=== PATIENT | female | born 1995 | race Caucasian/White ===

== ENCOUNTER 2021-08-03 08:05 | Outpatient (CLI) | payer BC, SELFPAY ==
--- NOTE | ~2021-08-03 | US_ITS ---
EXAMINATION: US OB <=14 wk fetus w TV EXAM DATE: 08/03/2021 09:04 INDICATION: , pelvic and perineal pain. 1st trimester. TECHNIQUE: Pelvic obstetrical transabdominal sonogram was performed by a technologist. There are mu ltiple grayscale and Doppler images available for interpretation. There are no earlier studies of th is gestation for comparison. FINDINGS: There is an intrauterine gestation sac with yolk sac identified. Mean sac diameter of 1.2 c m corresponds to estimated gestational age 6 weeks 0 days. No pole or cardiac activity is ident ified. Often a pole is identified with a mean sac diameter this size, but not always. Cannot co nfirm or exclude viability at this time. The ovaries are unremarkable. IMPRESSION: Intrauterine gestation sac age by ultrasound 6 weeks 0 days. Cannot confirm or exclude v iability at this time. Consider 1-2 week follow-up ultrasound. Reviewed, dictated and finalized at location B. IMPRESSION: Intrauterine gestation sac age by ultrasound 6 weeks 0 days. Canno t confirm or exclude viability at this time. Consider 1-2 week follow-up ultras ound.
== END 2021-08-03 08:06 | disposition home or self-care (01) ==
PROVIDERS: PCP Nurse Practitioner Family; Referring Provider Obstetrics & Gynecology; Visit Provider Nurse Practitioner Family
DX: R10.2 Pelvic and perineal pain (principal); O26.841 Uterine size-date discrepancy, first trimester; Z3A.01 Less than 8 weeks gestation of pregnancy
CPT/HCPCS: 36415; 76801; 76817; 84702; 86900; 86901

== ENCOUNTER 2021-08-05 09:24 | Outpatient (CLI) | payer BC, SELFPAY | END 2021-08-05 09:25 | disposition home or self-care (01) | LOC: ANHLAB 09:25 | PROVIDERS: PCP Nurse Practitioner Family; Visit Provider Obstetrics & Gynecology | DX: O26.849 Uterine size-date discrepancy, unspecified trimester (principal); Z3A.00 Weeks of gestation of pregnancy not specified | CPT/HCPCS: 36415; 84702; 86900; 86901 ==

== ENCOUNTER 2022-03-22 14:09 | Inpatient (IN) | payer BC, SELFPAY ==
[2022-03-22] VITALS (10 sets, daily range): BP systolic 120–149; BP diastolic 65–91; PULSE 86–100; BMI 33.0
[2022-03-22 14:43] LABS: Basophils Percent Auto 0.4 % (0.2-1.2); Eosinophils Percent Auto 0.2 % (0-4.4); Hematocrit 33.6 % (37.0-47.0); Hemoglobin 10.9 g/dL (12.0-15.0); Immature Granulocyte Percent A 1.2 % (0-0.5); Lymphocytes Absolute Auto 1.62 K/mm3 (0.9-3.2); Lymphocytes Percent Auto 18.9 % (18.3-44.2); Mean Corpuscular HGB Conc 32.4 g/dl (32-36); Mean Corpuscular Hemoglobin 26.7 pg (26-34); Mean Corpuscular Volume 82.2 fl (80-100); Mean Platelet Volume 9.9 fl (7.4-10.4); Monocytes Absolute Auto 0.6 K/mm3 (0.1-0.6); Monocytes Percent Auto 7.4 % (2.6-8.5); Neutrophils Absolute Auto 6.2 K/mm3 (1.3-6.7); Neutrophils Percent Auto 71.9 % (45.5-73.1); Platelet Count Result 202 k/mm3 (150-375); Red Blood Count 4.09 M/mm3 (4.2-5.4); Red Cell Distribution Width 12.2 % (11.5-14.5); White Blood Count 8.6 K/mm3 (4.5-10.0)
[2022-03-22 14:46] LABS: Appearance Urine Clear (Clear); Bilirubin Urine Negative (Negative); Blood Urine Trace-lysed (Negative); Color Urine Yellow (Yellow); Glucose Urine UA Negative (Negative); Ketones Urine Negative (Negative); Leukocyte Esterase Ur Negative LEU/UL (NEGATIVE); Nitrate Urine Negative (Negative); Protein Urine Negative (Negative); Urobilinogen Urine 0.2 mg/dL (<2.0)
[2022-03-22 14:52] LABS: Alanine Aminotransferase 30 U/L (6-35); Albumin Level 3.8 g/dL (3.5-5.1); Alkaline Phosphatase 138 U/L (38-126); Anion Gap 6 mmol/L (8-16); Aspartate Amino Transferase 33 U/L (14-36); Bilirubin,Total 0.4 mg/dL (0.2-1.3); Blood Urea Nitrogen 13 mg/dL (7-17); Calcium 8.9 mg/dL (8.4-10.2); Carbon Dioxide 19 mmol/L (22-30); Chloride 106 mmol/L (98-107); Estimated Glomerular Filt Rate > 60; Glucose 109 mg/dL (65-110); Sodium 131 mmol/L (137-145); Uric Acid 4.7 mg/dL (2.5-7.5)
[2022-03-22 14:55] LABS: Creatinine Urine 44.9 mg/dL; Total Protein Urine Random 19 mg/dL; Ur Ttl Prot Creatinine Ratio 0.42 mg/mg (0-0.20)
[2022-03-22 15:05] LABS: Mucus Urine Rare /lpf; RBC Urine 0-2 /hpf (0-2); Squamous Epithelial Cell Urine Moderate /hpf (Few); WBC Urine 0-3 /hpf (0-3)
[2022-03-22 15:08] LABS: Add Urine Microscopic? YES
--- OUTSIDE RECORDS SUMMARY | 2022-03-22 15:11 | XMS_ITS | Encounter Summary ---
:1995 Author Care Team Providers Name Role Phone Crystal Alfredo [facility] Primary Care Provider [phone] Reason for Visit None recorded. Assessment and Plan 1. Reduced movement ? non-stress test Discussion Note: None recorded.Patient educational handouts: No information available. Plan of Care Reminders Provider Appointments Ob Routine 03/23/2022 2:45PM Cindy Rosen MD ? Ob Routine 03/28/2022 9:00AM Cindy Rosen MD Lab None recorded. ? ? Referral None recorded. ? ? Procedures None recorded. ? ? Surgeries None recorded. ? ? Imaging Non-stress Test 02/17/2022 [place] Medications Name Start Date ? ? Vitamin ? sertraline 25 mg tablet ? TAKE 1 TABLET BY MOUTH EVERY DAY Tylenol ? Medications Administered None recorded. Vitals Blood Pressure 137/79 mm[Hg] Results Lab Results None recorded. Allergies Code Code System Name Reaction Severity Onset 723 RxNorm Amoxicillin ? ? ? Problems Name Status Onset Date Source ? Active 09/21/2021 ? Anxiety in Active ? ? Procedures Date Name Performed by ? 02/17/2022 Non-stress Test [place] [address] [place] [address] ([address]) Vaccine List None recorded. Social History Tobacco Smoking Status Unknown If Ever Smoked What type
--- OUTSIDE RECORDS SUMMARY | 2022-03-22 15:11 | XMS_ITS | Encounter Summary ---
:1995 Author Care Team Providers Name Role Phone Crystal Alfredo [facility] Primary Care Provider [phone] Reason for Visit OB visit Assessment and Plan 1. Routine care Discussion Note: None recorded.Patient educational handouts: No information available. Plan of Care Reminders Provider Appointments Ob Routine 03/23/2022 2:45PM Cindy Rosen MD ? Ob Routine 03/28/2022 9:00AM Cindy Rosen MD Lab None recorded. ? ? Referral None recorded. ? ? Procedures None recorded. ? ? Surgeries None recorded. ? ? Imaging None recorded. ? ? Medications Name Start Date ? ? Vitamin ? sertraline 25 mg tablet ? TAKE 1 TABLET BY MOUTH EVERY DAY Tylenol ? Medications Administered None recorded. Vitals Height Weight BMI Blood Pressure 5 ft 5 in 194 lbs 32.3 kg/m2 131/79 mm[Hg] Results Lab Results None recorded. Allergies Code Code System Name Reaction Severity Onset 723 RxNorm Amoxicillin ? ? ? Problems Name Status Onset Date Source ? Active 09/21/2021 ? Anxiety in Active ? ? Procedures Date Name Performed by ? 02/17/2022 Non-stress Test [place] [address] [place] [address] (Work Place) Vaccine List None recorded. Social History Tobacco Smoking Status Unknown If Ever Smoked What type of diet are you following? REGULA
--- OUTSIDE RECORDS SUMMARY | 2022-03-22 15:11 | XMS_ITS | Encounter Summary ---
:1995 Author Care Team Providers Name Role Phone Crystal Alfredo [facility] Primary Care Provider [phone] Reason for Visit OB visit Assessment and Plan 1. Routine care 2. Anxiety in ? sertraline 25 mg tablet Discussion Note: None recorded.Patient educational handouts: No [...] BMI Blood Pressure 5 ft 5 in 183 lbs 30.5 kg/m2 133/83 mm[Hg] Results Lab Results None recorded. Allergies Code Code System Name Reaction Severity Onset 723 RxNorm Amoxicillin ? ? ? Problems Name Status Onset Date Source ? Active 09/21/2021 ? Anxiety in Active ? ? Procedures None recorded. Vaccine List None recorded. Social History Tobacco Smoking Status Unknown If Ever Smoked What type of diet are you following? REGULAR What is the highest grade or level of school you [id number] have completed or the highest degree you have received?
--- OUTSIDE RECORDS SUMMARY | 2022-03-22 15:11 | XMS_ITS | Encounter Summary ---
:1995 Author Care Team Providers Name Role Phone Crystal Alfredo [facility] Primary Care Provider [phone] Reason for Visit OB visit Assessment and [...] BMI Blood Pressure 5 ft 5 in 189 lbs 31.5 kg/m2 132/79 mm[Hg] Results Lab Results None recorded. Allergies Code Code System Name Reaction Severity Onset 723 RxNorm Amoxicillin ? ? ? Problems Name Status Onset Date Source ? Active 09/21/2021 ? Anxiety in Active ? ? Procedures Date Name Performed by ? 02/17/2022 Non-stress Test [place] [address] [place] [address] (Work Place) Vaccine List None recorded. Social History Tobacco Smoking Status Unknown If Ever Smoked What type of diet are you following? REGULA
--- OUTSIDE RECORDS SUMMARY | 2022-03-22 15:11 | XMS_ITS ---
:1995 Author Care Team Providers Name Role Phone JAG RENNER [facility] Primary Care Provider [phone] Allergies Code Code System Name Reaction Severity Status Onset 723 RxNorm Amoxicillin Hives ? Active ? Medications Name Status Start Date Stop Date ? ? drospirenone 3 mg-ethinyl estradiol 0.02 mg tablet Completed ? 06/23/2021 TAKE 1 TABLET BY MOUTH DAILY hydroxyzine HCl 25 mg tablet Active ? Not available TAKE 1 TABLET BY MOUTH THREE TIMES DAILY NEEDED sertraline 25 mg tablet Active ? Not avai lable TAKE 1 TABLET BY MOUTH EVERY DAY Problems Name Status Onset Date Source ? Anxiety Active 08/02/2021 ? Procedures Date Name Performed by ? 08/02/2021 US, Pelvis, Transabdominal + Transvagina [facility] [address] [place] [address] (Work [address]) Results Lab Results Date Name Specimen Result Interpretation Description Value Range Status Address ? 08/04/2021 Urinalysis, ? Color Yellow ? ? [facility] [place]: Dipstick [address], [place] ? ? ? Appearance Clear ? ? [facility] [place]: [address], [place] ? ? ? Glucose Negative ? ? [facility] [place]: (Reference 619 Range: Negative [facility]
--- OUTSIDE RECORDS SUMMARY | 2022-03-22 15:11 | XMS_ITS | Encounter Summary ---
:1995 Author Care Team Providers Name Role Phone Crystal Alfredo [facility] Primary Care Provider [phone] Reason for Visit OB visit Assessment and [...] BMI Blood Pressure 5 ft 5 in 179 lbs 29.8 kg/m2 130/73 mm[Hg] Results Lab Results None recorded. Allergies [...] highest grade or level of school you [id number] have completed or the highest degree you have received? Are you able to walk? YESWOREST Are you blind or do you have difficulty seeing? N
--- OUTSIDE RECORDS SUMMARY | 2022-03-22 15:11 | XMS_ITS | Encounter Summary ---
:1995 Author Care Team Providers Name Role Phone Crystal Alfredo [facility] Primary Care Provider [phone] Reason for Visit OB visit Assessment and [...] BMI Blood Pressure 5 ft 5 in 196 lbs 32.6 kg/m2 132/79 mm[Hg] Results Lab Results None recorded. Allergies Code Code System Name Reaction Severity Onset 723 RxNorm Amoxicillin ? ? ? Problems Name Status Onset Date Source ? Active 09/21/2021 ? Anxiety in Active ? ? Procedures Date Name Performed by ? 02/17/2022 Non-stress Test [place] [address] [place] [address] (Work Place) Vaccine List None recorded. Social History Tobacco Smoking Status Unknown If Ever Smoked What type of diet are you following? REGULA
--- OUTSIDE RECORDS SUMMARY | 2022-03-22 15:11 | XMS_ITS ---
:1995 Author Care Team Providers Name Role Phone JAG RENNER [facility] Primary Care Provider [phone] Allergies Code Code System Name Reaction Severity Status Onset 723 RxNorm Amoxicillin ? ? Active ? Medications Name Status Start Date Stop Date ? ? drospirenone 3 mg-ethinyl estradiol 0.02 mg tablet Completed ? 08/13/2021 TAKE 1 TABLET BY MOUTH DAILY hydroxyzine HCl 25 mg tablet Completed ? TAKE 1 TABLET BY MOUTH THREE TIMES DAILY NEEDED Vitamin Active ? Not available sertraline 25 mg tablet Active ? Not avai lable TAKE 1 TABLET BY MOUTH EVERY DAY Tylenol Active ? Not available Problems Name Status Onset Date Source ? Active 09/21/2021 ? Anxiety in Active ? ? Procedures Date Name Performed by ? 08/13/2021 US, Obstetric, 1St Trimester [place] [address] [place] [address] (Work Place) 11/02/2021 , Obstetric, 2Nd or 3Rd Trimester [facility] [address] [place] [address] (Work Place) 11/02/2021 , Obstetric, Transvaginal [place] [address] [place] [address] (Work Place) 12/06/2021 , Obstetric, Follow-up [place] [address] [place] [address]
--- OUTSIDE RECORDS SUMMARY | 2022-03-22 15:11 | XMS_ITS | Encounter Summary ---
:1995 Author Care Team Providers Name Role Phone Crystal Alfredo [facility] Primary Care Provider [phone] Reason for Visit OB visit Assessment and [...] BMI Blood Pressure 5 ft 5 in 198 lbs 32.9 kg/m2 122/74 mm[Hg] Results Lab Results None recorded. Allergies Code Code System Name Reaction Severity Onset 723 RxNorm Amoxicillin ? ? ? Problems Name Status Onset Date Source ? Active 09/21/2021 ? Anxiety in Active ? ? Procedures Date Name Performed by ? 02/17/2022 Non-stress Test [place] [address] [place] [address] (Work [address]) Vaccine List None recorded. Social History Tobacco Smoking Status Unknown If Ever Smoked What type of diet are you following? REGULA
--- OUTSIDE RECORDS SUMMARY | 2022-03-22 15:11 | XMS_ITS | Encounter Summary ---
:1995 Author Care Team Providers Name Role Phone Crystal Alfredo [facility] Primary Care Provider [phone] Reason for Visit OB visit Assessment and [...] BMI Blood Pressure 5 ft 5 in 186 lbs 31 kg/m2 132/81 mm[Hg] Results Lab Results None recorded. Allergies [...] highest grade or level of school you [id number] have completed or the highest degree you have received? Are you able to walk? YESWOREST Are you blind or do you have difficulty seeing? N
--- NOTE | 2022-03-22 15:24 | LDADM ---
This patient, Raine Hsieh, was admitted to Labor/Delivery/Recovery 108 on 03/22/22 at 14:09. Plans for labor, pain management and were discussed with patient. Patient/family oriented to hospital policies and general routines including ID bracelet, bed and alarms, visiting hours, pain management, procedures, bathroom and other care routines, personal items, smoking policy, room service/diet and guest tray routines, infant security routines, and visiting hours. Patient/Family are encouraged to report perceived risks to care and to ask questions if they do not understand what they are told or what they should do. See OBIX for further documentation.
[2022-03-22] MEDS: miSOPROStol 25 MCG TABLET VAGINAL ×2 (15:55→20:18)
--- NOTE | 2022-03-22 16:37 | WPDANESEPP ---
Anes - Eval Pre Procedure Procedure: labor epidural Date/Time: 03/22/22 16:37 Surgeon: laura Preop Diagnosis: pain during labor Pre Op Diagnosis: PIH Labs Patient Data Age: 26 Gender: F Height: 1.65 m Weight: 90 kg Last Vital Signs Pulse 90 03/22/22 16:30 BP 133/86 03/22/22 16:30 O2 Del Method Room Air 03/22/22 15:23 Allergies Allergy/AdvReac Type Severity Reaction Status Date / Time amoxicillin Allergy Hives Verified 03/01/22 12:44 Home Medications Medication Instructions Recorded Confirmed Type prenat.vits,bart,[id number] 1 tablet PO DAILY 03/01/22 03/22/22 History sertraline 25 mg tablet 25 mg PO DAILY 03/01/22 03/22/22 History Laboratory Tests 03/22/22 03/22/22 03/22/22 14:23 14:23 14:23 WBC 8.6 K/mm3 K/mm3 (4.5-10.0) RBC 4.09 M/mm3 L M/mm3 (4.2-5.4) Hgb 10.9 g/dL L g/dL (12.0-15.0) Hct 33.6 % L % (37.0-47.0) MCV 82.2 fl fl (80-100) MCH 26.7 pg pg (26-34) MCHC 32.4 g/dl g/dl (32-36) RDW 12.2 % % (11.5-14.5) Plt Count 202 k/mm3 k/mm3 (150-375) MPV 9.9 fl fl (7.4-10.4) Immature Gran % (Auto) 1.2 % H % (0-0.5) Neut % (Auto) 71.9 % % (45.5-73.1) Lymph % (Auto) 18.9 % % (18.3-44.2) [place] % (Auto) 7.4 % % (2.6-8.5) Eos % (Auto) 0.2 % % (0-4.4) Baso % (Auto) 0.4 % % (0.2-1.2) Lymph # (Auto) 1.62 K/mm3 K/mm3 (0.9-3.2) [place] # (Auto) 0.6 K/mm3 K/mm3 (0.1-0.6) Eos # (Auto) 0.0 K/mm3 K/mm3 (0-0.3) Baso # (Auto) 0.0 K/mm3 K/mm3 (0.0-0.1) Abs Immat Gran (auto) 0.10 K/mm3 H K/mm3 (0.00-0.031) Absolute Neuts (auto) 6.2 K/mm3 K/mm3 (1.3-6.7) Absolute Nucleated RBC 0.0 K/mm3 K/mm3 (0.0-0.012) Nucleated RBC % 0.0 % % (0.0-0.2) Sodium Potassium Chloride Carbon Dioxide Anion Gap BUN Creatinine Estim Creat Clear Calc Estimated GFR Glucose Uric Acid Calcium Total Bilirubin AST ALT Alkaline Phosphatase Total Protein Albumin Urine Color Yellow (Yellow) Urine Appearance Clear (Clear) Urine pH 7.0 (5.0-9.0) Ur Specific Ira 1.010 (1.001-1.035) Urine Protein Negative mg/dL mg/dL (Negative) Urine Glucose (UA) Negative mg/dL mg/dL (Negative) Urine Ketones Negative mg/dL mg/dL (Negative) Ur Blood (Man) Trace-lysed (Negative) Urine Nitrate Negative (Negative) Urine Bilirubin Negative (Negative) Urine Urobilinogen 0.2 mg/dL mg/dL (<2.0) Ur Leukocyte Esterase Negative AUTUMN/UL AUTUMN/UL (NEGATIVE) Urine RBC 0-2 /hpf /hpf (0-2) Urine WBC 0-3 /hpf /hpf (0-3) Ur Squamous Epith Cells Moderate /hpf H /hpf (Few) Urine Mucus Rare /lpf /lpf U Random Total Protein 19 mg/dL mg/dL Urine Creatinine 44.9 mg/dL mg/dL Protein/Creat Ratio 2 0.42 mg/mg H mg/mg (0-0.20) RPR Blood Type Antibody Screen 03/22/22 03/22/22 03/22/22 14:23 15:19 15:19 WBC RBC Hgb Hct MCV MCH MCHC RDW Plt Count MPV Immature Gran % (Auto) Neut % (Auto) Lymph % (Auto) [place] % (Auto) Eos % (Auto) Baso % (Auto) Lymph # (Auto) [place] # (Auto) Eos # (Auto) Baso # (Auto) Abs Immat Gran (auto) Absolute Neuts (auto) Absolute
[2022-03-23] VITALS (158 sets, daily range): BP systolic 89–164; BP diastolic 31–137; PULSE 55–297; RESP 16–18; TEMP 36.2–37.1; O2SAT 80–100
[2022-03-23] MEDS: LACTATED RINGERS 1,000 ML 125 ML IV CONT ×2 (00:33→05:30)
[2022-03-23] MEDS: OXYTOCIN 30 UNITS/NS 500 ML 30 UNITS/500 ML BAG IV CONT (00:34)
--- NOTE | 2022-03-23 07:08 | PM.IMHP ---
H&P: HPI History of Present Illness Date/Time: 03/23/22 07:08 Chief Complaint: induction of labor Narrative: Raine is a 26yo G1 at 39.2 here for induction for PreE. BPs above her baseline up to 140s/90s, PEREIRA yesterday, now resolved, and PC ratio 0.46. Had cytotec x2 last night, now on pitocin. uncomplicated up until this point. Review of Systems Review of Systems: All systems reviewed & are unremarkable except as noted in HPI and below PMFSH Past Medical History Medical History (Updated 03/23/22 @ 07:12 by Cindy Rosen MD) IUP (intrauterine ), incidental Family History Family History (Updated 03/01/22 @ 12:46 by Lula Paz RN) Grandparent Heart disease Father Hypertension Grandparent Diabetes type 2, controlled Social History Social History Smoking status: Never smoker Substance use: never Lack of Transportation: No Lack of Food: Never True Current Housing: I Have Housing Concerned About Future Housing: No Difficulty Paying Gas/Electric Bills: No Difficulty Paying for Meds: No Currently Unemployed: No Education: Bachelor's Degree Difficulty w/ Childcare or Family Care: No Spiritual care concerns: No Meds Home Medications and Allergies Home Medications Medication Instructions Recorded Confirmed Type prenat.vits,bart,ayp-[id number]-xdxdn 1 tablet PO DAILY 03/01/22 03/22/22 History sertraline 25 mg tablet 25 mg PO DAILY 03/01/22 03/22/22 History Allergies Allergy/AdvReac Type Severity Reaction Status Date / Time amoxicillin Allergy Hives Verified 03/01/22 12:44 Vital Signs Vital Signs - 24 hr 03/22/22 14:30 03/22/22 14:45 03/22/22 15:00 Temperature Pulse Rate 100 97 94 Blood Pressure 143/87 H 136/77 132/84 Pulse Oximetry Oxygen Delivery 03/22/22 15:30 03/22/22 15:45 03/22/22 16:30 Temperature Pulse Rate 100 93 90 Blood Pressure 149/83 H 147/78 H 133/86 Pulse Oximetry Oxygen Delivery 03/22/22 17:00 03/22/22 17:30 03/22/22 18:00 Temperature Pulse Rate 92 86 99 Blood Pressure 120/68 138/65 138/91 H Pulse Oximetry Oxygen Delivery 03/22/22 21:37 03/23/22 00:38 03/23/22 00:30 Temperature 97.3 F L Pulse Rate 89 91 Blood Pressure 141/79 H 143/84 H Pulse Oximetry Oxygen Delivery 03/23/22 00:45 03/23/22 01:00 03/23/22 01:15 Temperature Pulse Rate 92 81 84 Blood Pressure 137/84 130/71 140/74 Pulse Oximetry Oxygen Delivery 03/23/22 01:30 03/23/22 02:35 03/23/22 02:45 Temperature Pulse Rate 92 89 83 Blood Pressure 128/65 145/85 H 134/85 Pulse Oximetry Oxygen Delivery 03/22/22 15:23 03/23/22 03:00 03/23/22 03:16 Temperature Pulse Rate 86 128 H Blood Pressure 144/99 H 138/71 Pulse Oximetry Oxygen Delivery Room Air 03/23/22 03:30 03/23/22 03:45 03/23/22 04:02 Temperature Pulse Rate 81 91 83 Blood Pressure 151/91 H 144/81 H 113/58 L Pulse Oximetry Oxygen Delivery 03/23/22 04:15 03/23/22 04:31 03/23/22 04:33 Temperature Pulse Rate 84 120 H Blood Pressure 118/82 118/93 H Pulse Oximetry 100 Oxygen Delivery 03/23/22 04:38 03/23/22 04:39 03/23/22 04:41 Temperature Pulse Rate 99 97 Blood Pressure 160/80 H 139/49 L Pulse Oximetry 100 Oxygen Delivery 03/23/22 04:43 03/23/22 04:44 03/23/22 04:47 Temperature Pulse Rate 90 77 69 Blood Pressure 122/67 118/99 H 112/59 L Pulse Oximetry 100 Oxygen Delivery 03/23/22 04:48 03/23/22 04:51 03/23/22 04:53 Temperature Pulse Rate 72 72 77 Blood Pressure 103/82 116/51 L 115/67 Pulse Oximetry 99 100 Oxygen Delivery 03/23/22 04:54 03/23/22 04:56 03/23/22 04:58 Temperature Pulse Rate 86 137 H 282 H Blood Pressure 106/59 L 89/59 L 111/54 L Pulse Oximetry 100 Oxygen Delivery 03/23/22 05:01 03/23/22 05:02 11/30/22 05:05 Temperature Pulse Rate 187 H 297 H 76 Blood Pressure 130/42 L 140/110 H 118/52 L Pulse
--- NOTE | 2022-03-23 12:53 | PM.OBPRVD ---
OB - Delivery Note Procedure Delivery date: 03/23/22 Procedure: Events: Preeclampsia w/o severe features Induction method: Per Misoprostol Protocol and Per Pitocin Protocol Delivery monitor: External FHT and Internal Uterine Route of delivery: Laceration Description: Perineal - 2nd Degree Delivery repair: vicryl Quantitative Blood Loss (ml): 400 Anesthesia type: Epidural Disposition: Floor Narrative: With adequate expulsive efforts by the mother, the baby's head was delivered OA. The baby's anterior shoulder was delivered under the pubic symphysis without difficulty. The posterior shoulder and the rest of the baby delivered without difficulty. The infant was placed on the mothers chest and suctioned and stimulated. The cord was clamped and cut after 30 seconds. Mother and baby both stable. [place] Baby Date of : 03/23/22 Time of : 12:26 Weeks of gestation at delivery: 39 Infant gender: Male Weight (pounds): 7 Weight (ounces): 9 presentation: vertex Placenta delivery description: Spontaneous Cord Vessel Description: 3 Vessels, Nuchal Cord and Delayed Cord Clamping score one minute: 9 score five minutes: 9
[2022-03-23] MEDS: WITCH HAZEL 40 PADS 1 PAD TOPICAL (14:30)
[2022-03-23] MEDS: ACETAMINOPHEN 325 MG TABLET 650 MG PO ×2 (14:30→20:36)
[2022-03-23] MEDS: BENZOCAINE 20% AER SPR (*SP) 56 GM CAN 1 SPRAY TOPICAL (14:30)
--- NOTE | 2022-03-23 15:24 | OBPPTRN ---
Patient transferred to post room # 290 via wheelchair. Support person present. Oriented to unit, room, information board, rooming in, admission packet and security measures. Patient verbalizes understanding. PT introductions made and plan of care discussed per post , pain management, bottle feeding, daily care activities. PT received such instructions this shift per one to one discussion, mom baby care guide and demonstrations. PT and spouse both recipients of such instructions and no barriers to learning identified at this time.
[2022-03-23] MEDS: DOCUSATE SODIUM 100 MG CAPSULE PO (16:27)
[2022-03-23] MEDS: IBUPROFEN 600 MG TABLET PO ×2 (16:27→23:20)
[2022-03-23 16:38] LABS: Rapid Plasma Reagin Non-Reactive (NonReactive)
[2022-03-24 04:00] VITALS: BP 124/83; PULSE 73; RESP 16; TEMP 36.6; O2SAT 99
[2022-03-24 04:47] LABS: Hematocrit 30.3 % (37.0-47.0); Hemoglobin 9.4 g/dL (12.0-15.0)
[2022-03-24 07:40] VITALS: BP 150/89; PULSE 98; RESP 16; TEMP 37.1; O2SAT 99
[2022-03-24] MEDS: DOCUSATE SODIUM 100 MG CAPSULE PO ×2 (07:50→16:44)
[2022-03-24] MEDS: POLYSACCHARIDE IRON COMPLEX 150 MG CAPSULE PO ×2 (07:50→16:43)
[2022-03-24] MEDS: SERTRALINE HCL 25 MG TABLET PO (07:50)
[2022-03-24] MEDS: IBUPROFEN 600 MG TABLET PO ×3 (07:50→19:57)
[2022-03-24 08:00] VITALS: PULSE 73; RESP 16; O2SAT 99
--- NOTE | 2022-03-24 10:21 | PM.OBPNVD ---
OB - PN: Subj Subjective Date/time seen: 03/24/22 10:21 Patient comments: no complaints, pain well controlled, incisional pain, tolerating diet and flatus present OB - PN: Obj Data Labs 03/24/22 04:31 03/22/22 14:23 Labs: Laboratory Results - last 24 hr 03/22/22 03/24/22 15:19 04:31 Hgb 9.4 L Hct 30.3 L RPR Non-reactive OB - PN A/P Plan day: 1 Plan: routine care Comments: No problems, routine care Time Spent With Patient Time: Total time spent is greater than 50% in coordination of care (as documented) at patient's floor/unit and/or counseling patient: Exam Const: General: comfortable, no acute distress and alert Resp: Effort & Inspection: normal respiratory effort Auscultation: no crackles, no rales and no rhonchi Cardio: Rate: regular rate Heart sounds: no click, no murmurs and no rubs GI: Inspection: non-distended GI Palp: No Tenderness to palpation present (GI) Auscultation: normal bowel sounds Other: Incision - CDI Extrem: General: normal to inspection, no pedal edema and no calf tenderness
[2022-03-24 11:59] VITALS: BP 132/78; PULSE 91; RESP 16; TEMP 36.9; O2SAT 100
--- NOTE | 2022-03-24 13:31 | WPDANLDPN2 ---
Anes-Prog Note L&D Date/Time: 03/24/22 13:31 Neuro status: Neuro function grossly intact. Vital Signs: Last Vital Signs Temp 36.9 C 03/24/22 11:59 Pulse 91 03/24/22 11:59 Resp 16 03/24/22 11:59 BP 132/78 03/24/22 11:59 Pulse Ox 100 03/24/22 11:59 O2 Del Method Room Air 03/24/22 08:00 Pain score (VAS): 0 I/O: Intake & Output 03/23/22 03/24/22 03/24/22 23:59 07:59 15:59 Intake Total 240 360 Output Total 170 Balance 240 190 Patient feedback: Patient satisfied with anesthetic care.
[2022-03-24 19:50] VITALS: BP 153/87; PULSE 88; RESP 18; TEMP 36.4
--- NOTE | 2022-03-24 19:59 | PC.NURSE ---
Patient viewed the discharge video Mother & Baby Care, The First Two Weeks . Patient was given the opportunity and encouraged to ask questions. Patient verbalized understanding of information shared and has been given the mother/baby guide for home reference.
[2022-03-25] MEDS: IBUPROFEN 600 MG TABLET PO (04:58)
[2022-03-25] MEDS: WITCH HAZEL 40 PADS 1 PAD TOPICAL (04:58)
--- NOTE | 2022-03-25 08:25 | P.PNOB_ITS ---
OB - PN: Subj Subjective Date/time seen: 03/25/22 08:25 Patient comments: no complaints and pain well controlled baby status: doing well and bottle feeding well [place] feeding status: exclusively bottle feeding Narrative: ready for DC home OB - PN: Obj Data Labs 03/24/22 04:31 03/22/22 14:23 OB - PN A/P Plan day: 2 Plan: routine care and discharge home Time Spent With Patient Time: Total time spent is greater than 50% in coordination of care (as documented) at patient's floor/unit and/or counseling patient: Time with patient: less than 15 minutes Exam Narrative: NAD abdomen soft, nontender, fundus firm below the umbilicus Extremities nontender, 1+ edema
--- NOTE | 2022-03-25 08:27 | PM.OBDSVD ---
DS: Admitting Diagnosis Discharge Date 03/25/22 Admitting Diagnosis IUP 39w, mild PreEclampsia DS: Discharge Diagnosis Discharge Diagnosis (1) Preeclampsia: Code(s): O14.90 - Unspecified pre-eclampsia, unspecified trimester Status: Acute (2) , delivered: Code(s): O80 - Encounter for full-term uncomplicated delivery Status: Acute OB - DS: Summary Hospital Course Hospital Course: Pt was admitted for IOL for mild preeclampsia at term. She proceeded to have an uncomplicated vaginal delivery and course. BPs were never severe range. OB Procedures : Ultrasound OB Procedures Intrapartum: Spontaneous Vag Delivery OB Procedures: : None Peripartum Data Delivery Method: Natural Vaginal complications: none Status at Discharge Functional status at discharge: independent ambulation Time Spent with Patient Time attestation: Total time spent providing and/or coordinating discharge services: Exam Narrative: NAD abdomen soft, appropriately tender Ext non tender, 1+ edema Discharge Plan Discharge Attending physician on discharge: Cindy Rosen Discharging Clinician: Cindy Rosen Anticipated Discharge Date/Time: 03/25/22 08:26 Patient Disposition: Home, Self-Care Activity: pelvic rest Diet: regular Patient Instructions: Antibiotic Form Stand Alone Forms: General Discharge Information Follow-up/Referrals: Cindy Rosen MD [Physician] - 5 Weeks Discharge Medications: Continued sertraline 25 mg Tablet 25 mg PO DAILY #2 Tablet 1 tablet PO DAILY Date of admission: 03/22/22 14:09 Primary Care Provider: Sayda,Crystal Ruiz Admitting Provider: Cindy Rosen Attending physician on admission: Cindy Rosen Condition: Stable
[2022-03-25] MEDS: SERTRALINE HCL 25 MG TABLET PO (09:04)
[2022-03-25] MEDS: MULTIVIT/MIN/PREN/FOL AC/IRON TABLET 1 TAB PO (09:04)
[2022-03-25] MEDS: POLYSACCHARIDE IRON COMPLEX 150 MG CAPSULE PO (09:04)
[2022-03-25] MEDS: DOCUSATE SODIUM 100 MG CAPSULE PO (09:05)
[2022-03-25 09:20] VITALS: BP 139/84; PULSE 110; RESP 18; TEMP 36.7; O2SAT 98
[2022-03-26 09:54] VITALS: BP 138/72; PULSE 100; RESP 20; TEMP 36.8; O2SAT 100
== END 2022-03-25 11:31 | disposition home or self-care (01) | DRG 807 ==
LOC: ANHLDR 15:08 → ANHOB2 03-23 15:28
PROVIDERS: Admitting Provider Obstetrics & Gynecology; PCP Nurse Practitioner Family; Visit Provider Obstetrics & Gynecology
DX: O14.04 Mild to moderate pre-eclampsia, complicating childbirth (principal); Z37.0 Single live birth; Z3A.39 39 weeks gestation of pregnancy; O69.81X0 Labor and delivery complicated by cord around neck, without compression, not applicable or unspecified; O36.8330 Maternal care for abnormalities of the fetal heart rate or rhythm, third trimester, not applicable or unspecified; O70.1 Second degree perineal laceration during delivery
CPT/HCPCS: 36415; 59025; 80053; 81001; 82570; 84156; 84550; 85014; 85018; 85025; 86592; 86850; 86900; 86901; 87086; 87088; A9270; J0131; J2590; J2795; J7120

== ENCOUNTER 2023-10-27 09:22 | Outpatient (CLI) | payer OTHER, SELFPAY ==
--- NOTE | ~2023-10-27 | US_ITS ---
EXAMINATION: US OB <= 14 weeks fetus DATE: 10/27/2023 09:38 INDICATION: Amenorrhea TECHNIQUE: Real-time pelvic ultrasound utilizing transabdominal probe was performed. The valentine mathur radiologist was not present for the study. COMPARISON: None. FINDINGS: The uterus measures 12.0 x 7.1 x 4.2 cm. There is an intrauterine gestational sac. A yolk sac and fe marie pole are identified. The crown rump length measures 2.3 cm, which correlates with an estimated ge stational age of 9 weeks and 0 days. heart motion is identified measuring 174 beats per minute (bpm) by M-mode Doppler. The right and left ovaries are not visualized. There is no free fluid in the pelvis. IMPRESSION: 1. Single living fetus with heart rate of 174 bpm. 2. Gestational age by ultrasound of 9 weeks 0 day(s) +/- 6 day(s) with ultrasound estimated date of delivery (TIANNA) of 05/31/2024. Reviewed, dictated and finalized at location B. IMPRESSION: 1. Single living fetus with heart rate of 174 bpm. 2. Gestational age by ultrasound of 9 weeks 0 day(s) +/- 6 day(s) with ultraso und estimated date of delivery (TIANNA) of 05/31/2024.
== END 2023-10-27 09:23 ==
PROVIDERS: PCP Student in an Organized Health Care Education/Training Program; Visit Provider Student in an Organized Health Care Education/Training Program
DX: Z34.91 Encounter for supervision of normal pregnancy, unspecified, first trimester (principal); Z3A.09 9 weeks gestation of pregnancy
CPT/HCPCS: 76801

== ENCOUNTER 2023-11-10 07:32 | Outpatient (CLI) | payer OTHER, SELFPAY ==
[2023-11-10 08:23] LABS: Alanine Aminotransferase 18 U/L (6-35); Albumin Level 4.6 g/dL (3.5-5.1); Alkaline Phosphatase 69 U/L (38-126); Anion Gap 13 mmol/L (4-12); Aspartate Amino Transferase 25 U/L (14-36); Bilirubin,Total 0.8 mg/dL (0.2-1.3); Blood Urea Nitrogen 8 mg/dL (7-17); Calcium 9.2 mg/dL (8.4-10.2); Carbon Dioxide 23 mmol/L (22-30); Chloride 99 mmol/L (98-107); Estimated Glomerular Filt Rate > 60; Glucose 85 mg/dL (65-110); Potassium 3.7 mmol/L (3.4-5.0); Sodium 135 mmol/L (137-145)
[2023-11-10 08:24] LABS: Basophils Percent Auto 0.3 % (0.2-1.2); Eosinophils Absolute Auto 0.1 K/mm3 (0-0.3); Eosinophils Percent Auto 0.7 % (0-4.4); Hematocrit 38.2 % (37.0-47.0); Hemoglobin 12.5 g/dL (12.0-15.0); Immature Granulocyte Absolute 0.02 K/mm3 (0.00-0.031); Immature Granulocyte Percent A 0.3 % (0-0.5); Lymphocytes Absolute Auto 2.62 K/mm3 (0.9-3.2); Lymphocytes Percent Auto 35.6 % (18.3-44.2); Mean Corpuscular HGB Conc 32.7 g/dl (32-36); Mean Corpuscular Volume 85.7 fl (80-100); Mean Platelet Volume 8.9 fl (7.4-10.4); Monocytes Absolute Auto 0.4 K/mm3 (0.1-0.6); Monocytes Percent Auto 5.7 % (2.6-8.5); Neutrophils Absolute Auto 4.2 K/mm3 (1.3-6.7); Neutrophils Percent Auto 57.4 % (45.5-73.1); Platelet Count Result 229 k/mm3 (150-375); Red Blood Count 4.46 M/mm3 (4.2-5.4); Red Cell Distribution Width 13.1 % (11.5-14.5); White Blood Count 7.4 K/mm3 (4.5-10.0)
[2023-11-10 09:03] LABS: HIV 1/2 Ab P24 Ag Result Negative (Negative)
[2023-11-10 09:28] LABS: Creatinine Urine 46.6 mg/dL; Total Protein Urine Random 10 mg/dL
[2023-11-10 10:09] LABS: Hepatitis B Surface Antigen Negative (Negative)
[2023-11-10 10:13] LABS: Rubella IgG Antibody > 110.0 IU/ML
[2023-11-10 11:22] LABS: Rapid Plasma Reagin Non-Reactive (NonReactive)
[2023-11-13 15:08] LABS: CMV IgG Antibody >10.00 U/mL
== END 2023-11-10 07:33 | disposition home or self-care (01) ==
LOC: ANHLAB 07:32
PROVIDERS: PCP Student in an Organized Health Care Education/Training Program; Visit Provider Student in an Organized Health Care Education/Training Program
DX: N91.2 Amenorrhea, unspecified (principal); Z87.59 Personal history of other complications of pregnancy, childbirth and the puerperium
CPT/HCPCS: 36415; 80053; 81050; 82570; 84156; 84702; 85025; 86592; 86644; 86703; 86747; 86762; 86787; 86850; 86900; 86901; 87086; 87088; 87340; G0432

== ENCOUNTER 2024-03-15 08:07 | Outpatient (CLI) | payer OTHER, SELFPAY ==
[2024-03-15 18:57] LABS: Basophils Percent Auto 0.3 % (0.2-1.2); Eosinophils Absolute Auto 0.1 K/mm3 (0-0.3); Eosinophils Percent Auto 1.3 % (0-4.4); Hematocrit 33.7 % (37.0-47.0); Hemoglobin 10.9 g/dL (12.0-15.0); Immature Granulocyte Absolute 0.11 K/mm3 (0.00-0.031); Immature Granulocyte Percent A 1.1 % (0-0.5); Lymphocytes Absolute Auto 1.92 K/mm3 (0.9-3.2); Lymphocytes Percent Auto 19.1 % (18.3-44.2); Mean Corpuscular HGB Conc 32.3 g/dl (32-36); Mean Corpuscular Hemoglobin 30.4 pg (26-34); Mean Corpuscular Volume 93.9 fl (80-100); Mean Platelet Volume 9.1 fl (7.4-10.4); Monocytes Absolute Auto 0.8 K/mm3 (0.1-0.6); Neutrophils Absolute Auto 7.1 K/mm3 (1.3-6.7); Neutrophils Percent Auto 70.2 % (45.5-73.1); Platelet Count Result 244 k/mm3 (150-375); Red Blood Count 3.59 M/mm3 (4.2-5.4); Red Cell Distribution Width 12.4 % (11.5-14.5); White Blood Count 10.1 K/mm3 (4.5-10.0)
[2024-03-15 19:02] LABS: Glucose 1 Hour PP 50gm Dose 88 mg/dL
[2024-03-15 19:57] LABS: HIV 1/2 Ab P24 Ag Result Negative (Negative)
[2024-03-16 11:30] LABS: Rapid Plasma Reagin Non-Reactive (NonReactive)
== END 2024-03-15 08:08 | disposition home or self-care (01) ==
LOC: ANHGOSHLAB 08:08
PROVIDERS: PCP Student in an Organized Health Care Education/Training Program; Visit Provider Obstetrics & Gynecology
DX: Z34.90 Encounter for supervision of normal pregnancy, unspecified, unspecified trimester (principal)
CPT/HCPCS: 36415; 82947; 85025; 86592; 86703; G0432

== ENCOUNTER 2024-05-03 15:17 | Outpatient (RCR) | payer OTHER, SELFPAY ==
[2024-04-30 11:26] LABS: Basophils Percent Auto 0.2 % (0.2-1.2); Eosinophils Absolute Auto 0.1 K/mm3 (0-0.3); Eosinophils Percent Auto 1.1 % (0-4.4); Hematocrit 34.2 % (37.0-47.0); Hemoglobin 11.5 g/dL (12.0-15.0); Immature Granulocyte Absolute 0.09 K/mm3 (0.00-0.031); Immature Granulocyte Percent A 0.9 % (0-0.5); Lymphocytes Absolute Auto 1.85 K/mm3 (0.9-3.2); Lymphocytes Percent Auto 18.1 % (18.3-44.2); Mean Corpuscular HGB Conc 33.6 g/dl (32-36); Mean Corpuscular Volume 89.3 fl (80-100); Mean Platelet Volume 9.4 fl (7.4-10.4); Monocytes Absolute Auto 0.6 K/mm3 (0.1-0.6); Monocytes Percent Auto 6.1 % (2.6-8.5); Neutrophils Absolute Auto 7.5 K/mm3 (1.3-6.7); Neutrophils Percent Auto 73.6 % (45.5-73.1); Platelet Count Result 201 k/mm3 (150-375); Red Blood Count 3.83 M/mm3 (4.2-5.4); Red Cell Distribution Width 12.9 % (11.5-14.5); White Blood Count 10.2 K/mm3 (4.5-10.0)
[2024-04-30 11:36] LABS: Add Urine Microscopic? NO; Appearance Urine Clear (Clear); Bilirubin Urine Negative (Negative); Blood Urine Negative (Negative); Color Urine Yellow (Yellow); Glucose Urine UA Negative (Negative); Ketones Urine Negative (Negative); Leukocyte Esterase Ur Negative LEU/UL (Negative); Nitrate Urine Negative (Negative); Protein Urine Negative (Negative); Specific Grav Ur 1.007 (1.001-1.035); Urobilinogen Urine 0.2 mg/dL (<2.0)
[2024-04-30 11:51] LABS: Alanine Aminotransferase 16 U/L (6-35); Albumin Level 3.6 g/dL (3.5-5.1); Alkaline Phosphatase 117 U/L (38-126); Anion Gap 5 mmol/L (4-12); Aspartate Amino Transferase 26 U/L (14-36); Bilirubin,Total 0.7 mg/dL (0.2-1.3); Blood Urea Nitrogen 9 mg/dL (7-17); Calcium 9.2 mg/dL (8.4-10.2); Carbon Dioxide 25 mmol/L (22-30); Chloride 105 mmol/L (98-107); Estimated Glomerular Filt Rate > 60; Glucose 98 mg/dL (65-110); Potassium 3.8 mmol/L (3.4-5.0); Sodium 135 mmol/L (137-145); Uric Acid 3.6 mg/dL (2.5-7.5)
[2024-04-30 11:52] LABS: Creatinine Urine 24.9 mg/dL; Total Protein Urine Random 12 mg/dL; Ur Ttl Prot Creatinine Ratio 0.48 mg/mg (0-0.20)
[2024-04-30 12:58] VITALS: BP 133/75; PULSE 104
--- NOTE | ~2024-05-03 | US_ITS ---
EXAMINATION: US OB BPP wo non-stress DATE: 04/30/2024 12:[address] INDICATION: Elevated blood pressure. TECHNIQUE: Real-time transabdominal obstetric ultrasound. FINDINGS: Comparison ultrasound dated 10/27/2023 There is a single living fetus in vertex presentation. The placenta is anterior without placenta pre via. VINCENT is normal measuring 10.5 cm. cardiac activity and movement is noted with a heart rate of 137 beats per minute. Biophysical profile: breathin of 2 movement: 2 of 2 tone: 2 of 2 Amniotic flud pocket: 2 of 2 Total score: 8 of 8 IMPRESSION: 1. Single living intrauterine in vertex presentation. 2: Total biophysical profile score of 8/8. 3: Normal VINCENT measures 10.5 cm. Reviewed, dictated and finalized at location B. [address] FORMS
[2024-05-03 15:47] VITALS: BP 120/71; PULSE 104
== END 2024-07-29 23:59 | disposition home or self-care (01) ==
LOC: ANHOBOP 15:17
PROVIDERS: Obstetrics & Gynecology; Visit Provider Student in an Organized Health Care Education/Training Program
DX: O26.893 Other specified pregnancy related conditions, third trimester (principal); R03.0 Elevated blood-pressure reading, without diagnosis of hypertension; O14.93 Unspecified pre-eclampsia, third trimester; Z3A.36 36 weeks gestation of pregnancy
CPT/HCPCS: 36415; 59025; 76819; 80053; 81003; 82570; 84156; 84550; 85025

== ENCOUNTER 2024-05-07 00:44 | Outpatient (CLI) | payer OTHER, SELFPAY ==
--- NOTE | 2024-05-07 00:44 | PC.NURSE ---
Pt arrives to unit with dizziness, elevated blood pressure, and a headache 2 out of 10.
[2024-05-07 00:55] VITALS: BP 121/69; PULSE 95
[2024-05-07 01:26] LABS: Basophils Percent Auto 0.3 % (0.2-1.2); Eosinophils Absolute Auto 0.2 K/mm3 (0-0.3); Eosinophils Percent Auto 1.9 % (0-4.4); Hematocrit 32.5 % (37.0-47.0); Hemoglobin 10.8 g/dL (12.0-15.0); Immature Granulocyte Absolute 0.08 K/mm3 (0.00-0.031); Immature Granulocyte Percent A 0.9 % (0-0.5); Lymphocytes Absolute Auto 2.53 K/mm3 (0.9-3.2); Lymphocytes Percent Auto 28.6 % (18.3-44.2); Mean Corpuscular HGB Conc 33.2 g/dl (32-36); Mean Corpuscular Hemoglobin 30.3 pg (26-34); Mean Platelet Volume 9.6 fl (7.4-10.4); Monocytes Absolute Auto 0.7 K/mm3 (0.1-0.6); Monocytes Percent Auto 8.4 % (2.6-8.5); Neutrophils Absolute Auto 5.3 K/mm3 (1.3-6.7); Neutrophils Percent Auto 59.9 % (45.5-73.1); Platelet Count Result 167 k/mm3 (150-375); Red Blood Count 3.57 M/mm3 (4.2-5.4); Red Cell Distribution Width 12.9 % (11.5-14.5); White Blood Count 8.9 K/mm3 (4.5-10.0)
[2024-05-07 01:30] LABS: Add Urine Microscopic? NO; Appearance Urine Clear (Clear); Bilirubin Urine Negative (Negative); Blood Urine Negative (Negative); Color Urine Yellow (Yellow); Glucose Urine UA Negative (Negative); Ketones Urine Negative (Negative); Leukocyte Esterase Ur Negative LEU/UL (Negative); Nitrate Urine Negative (Negative); Protein Urine Negative (Negative); Specific Grav Ur 1.006 (1.001-1.035); Urobilinogen Urine 0.2 mg/dL (<2.0)
[2024-05-07 01:36] LABS: Alanine Aminotransferase 17 U/L (6-35); Albumin Level 3.3 g/dL (3.5-5.1); Alkaline Phosphatase 112 U/L (38-126); Anion Gap 7 mmol/L (4-12); Aspartate Amino Transferase 22 U/L (14-36); Bilirubin,Total 0.5 mg/dL (0.2-1.3); Blood Urea Nitrogen 10 mg/dL (7-17); Calcium 8.6 mg/dL (8.4-10.2); Carbon Dioxide 22 mmol/L (22-30); Chloride 106 mmol/L (98-107); Estimated Glomerular Filt Rate > 60; Glucose 94 mg/dL (65-110); Potassium 3.7 mmol/L (3.4-5.0); Sodium 135 mmol/L (137-145); Uric Acid 4.6 mg/dL (2.5-7.5)
[2024-05-07 01:37] LABS: Creatinine Urine 26.1 mg/dL; Total Protein Urine Random 17 mg/dL; Ur Ttl Prot Creatinine Ratio 0.65 mg/mg (0-0.20)
--- NOTE | 2024-05-07 01:50 | PC.NURSE ---
Called Dr. Vallejo, update on pt, dizziness, headache, blood pressure, and labs. Orders received to administer 1000 mg Tylenol and discharge pt with instructions to keep next scheduled appointment and when to return to the unit.
[2024-05-07 01:55] VITALS: BP 121/69; PULSE 95
[2024-05-07 02:04] VITALS: BMI 34.8
--- NOTE | 2024-05-07 02:05 | PC.NURSE ---
Pt discharged with instructions to keep next scheduled appointment and when to return to the unit, pt verbalizes understanding.
== END 2024-05-07 02:05 | disposition home or self-care (01) ==
LOC: ANHOBOP 00:49
PROVIDERS: Visit Provider Student in an Organized Health Care Education/Training Program
DX: O13.9 Gestational [pregnancy-induced] hypertension without significant proteinuria, unspecified trimester (principal); Z3A.00 Weeks of gestation of pregnancy not specified
CPT/HCPCS: 36415; 59025; 80053; 81003; 82570; 84156; 84550; 85025

== ENCOUNTER 2024-05-10 05:14 | Inpatient (IN) | payer OTHER, SELFPAY ==
[2024-05-10] VITALS (145 sets, daily range): BP systolic 75–140; BP diastolic 37–87; PULSE 25–238; TEMP 36.6–37.1; O2SAT 75–100; BMI 34.8
--- NOTE | 2024-05-10 05:36 | LDADM ---
This patient, Raine Hsieh, was admitted to Labor/Delivery/Recovery 104 on 05/10/24 at 05:14. Plans for labor, pain management and were discussed with patient. Patient/family oriented to hospital policies and general routines including ID bracelet, bed and alarms, visiting hours, pain management, procedures, bathroom and other care routines, personal items, smoking policy, room service/diet and guest tray routines, infant security routines, and visiting hours. Patient/Family are encouraged to report perceived risks to care and to ask questions if they do not understand what they are told or what they should do. See OBIX for further documentation.
[2024-05-10 05:58] LABS: Basophils Percent Auto 0.3 % (0.2-1.2); Eosinophils Absolute Auto 0.1 K/mm3 (0-0.3); Eosinophils Percent Auto 1.5 % (0-4.4); Hematocrit 36.5 % (37.0-47.0); Immature Granulocyte Absolute 0.05 K/mm3 (0.00-0.031); Immature Granulocyte Percent A 0.6 % (0-0.5); Lymphocytes Absolute Auto 1.82 K/mm3 (0.9-3.2); Lymphocytes Percent Auto 23.1 % (18.3-44.2); Mean Corpuscular HGB Conc 32.9 g/dl (32-36); Mean Corpuscular Hemoglobin 30.2 pg (26-34); Mean Corpuscular Volume 91.7 fl (80-100); Mean Platelet Volume 9.7 fl (7.4-10.4); Monocytes Absolute Auto 0.4 K/mm3 (0.1-0.6); Monocytes Percent Auto 5.2 % (2.6-8.5); Neutrophils Absolute Auto 5.5 K/mm3 (1.3-6.7); Neutrophils Percent Auto 69.3 % (45.5-73.1); Platelet Count Result 191 k/mm3 (150-375); Red Blood Count 3.98 M/mm3 (4.2-5.4); Red Cell Distribution Width 13.1 % (11.5-14.5); White Blood Count 7.9 K/mm3 (4.5-10.0)
[2024-05-10] MEDS: miSOPROStol 25 MCG TABLET 50 MCG BUCCAL (06:14)
[2024-05-10 06:15] LABS: Alanine Aminotransferase 19 U/L (6-35); Albumin Level 3.7 g/dL (3.5-5.1); Alkaline Phosphatase 121 U/L (38-126); Anion Gap 11 mmol/L (4-12); Aspartate Amino Transferase 22 U/L (14-36); Bilirubin,Total 0.8 mg/dL (0.2-1.3); Blood Urea Nitrogen 9 mg/dL (7-17); Calcium 9.1 mg/dL (8.4-10.2); Carbon Dioxide 18 mmol/L (22-30); Chloride 107 mmol/L (98-107); Estimated CRCL calculation 148 ml/min; Estimated Glomerular Filt Rate > 60; Glucose 125 mg/dL (65-110); Potassium 3.6 mmol/L (3.4-5.0); Sodium 136 mmol/L (137-145); Uric Acid 5.1 mg/dL (2.5-7.5)
[2024-05-10 06:45] LABS: Rapid Plasma Reagin Non-Reactive (NonReactive)
--- NOTE | 2024-05-10 06:49 | WPDANESEPP ---
Anes - Eval Pre Procedure Procedure: labor epidural Date/Time: 05/10/24 06:49 Surgeon: pawel Preop Diagnosis: pain during labor Pre Op Diagnosis: IOL Patient Data Age: 28 Gender: F Height: 1.65 m Weight: 95 kg Last Vital Signs Pulse 93 05/10/24 06:30 BP 117/80 05/10/24 06:30 Pulse Ox 75 L 05/10/24 06:48 O2 Del Method Room Air 05/10/24 05:36 Allergies Allergy/AdvReac Type Severity Reaction Status Date / Time amoxicillin Allergy Mild Hives Verified 05/08/24 08:09 Home Medications ?Medication ?Instructions ?Recorded ?Confirmed ?Type prenat.vits,bart,[id number] 1 tablet PO DAILY 03/01/22 05/08/24 History hydroxyzine HCl 25 mg tablet 25 mg PO BID PRN itching 10/24/23 05/08/24 History sertraline 50 mg tablet 50 mg PO DAILY #90 tabs 12/26/23 05/08/24 Rx aspirin 81 mg tablet,delayed 162 mg PO DAILY 01/23/24 05/08/24 History release (Adult Low Dose Aspirin) ferrous sulfate 325 mg (65 mg 325 mg PO DAILY 01/23/24 05/08/24 History iron) tablet (Feosol) Laboratory Tests 05/10/24 05/10/24 05:43 05:55 WBC 7.9 K/mm3 (4.5-10.0) RBC 3.98 L M/mm3 (4.2-5.4) Hgb 12.0 g/dL (12.0-15.0) Hct 36.5 L % (37.0-47.0) MCV 91.7 fl (80-100) MCH 30.2 pg (26-34) MCHC 32.9 g/dl (32-36) RDW 13.1 % (11.5-14.5) Plt Count 191 k/mm3 (150-375) MPV 9.7 fl (7.4-10.4) Immature Gran % (Auto) 0.6 H % (0-0.5) Neut % (Auto) 69.3 % (45.5-73.1) Lymph % (Auto) 23.1 % (18.3-44.2) [place] % (Auto) 5.2 % (2.6-8.5) Eos % (Auto) 1.5 % (0-4.4) Baso % (Auto) 0.3 % (0.2-1.2) Lymph # (Auto) 1.82 K/mm3 (0.9-3.2) [place] # (Auto) 0.4 K/mm3 (0.1-0.6) Eos # (Auto) 0.1 K/mm3 (0-0.3) Baso # (Auto) 0.0 K/mm3 (0.0-0.1) Abs Immat Gran (auto) 0.05 H K/mm3 (0.00-0.031) Absolute Neuts (auto) 5.5 K/mm3 (1.3-6.7) Absolute Nucleated RBC 0.000 K/mm3 (0.0-0.012) Nucleated RBC % 0.0 % (0.0-0.2) Sodium 136 L mmol/L (137-145) Potassium 3.6 mmol/L (3.4-5.0) Chloride 107 mmol/L (98-107) Carbon Dioxide 18 L mmol/L (22-30) Anion Gap 11 mmol/L (4-12) BUN 9 mg/dL (7-17) Creatinine 0.55 L mg/dL (0.7-1.0) Estim Creat Clear Calc 148 ml/min Estimated GFR > 60 (59 - ) Glucose 125 H mg/dL (65-110) Uric Acid 5.1 mg/dL (2.5-7.5) Calcium 9.1 mg/dL (8.4-10.2) Total Bilirubin 0.8 mg/dL (0.2-1.3) AST 22 U/L (14-36) ALT 19 U/L (6-35) Alkaline Phosphatase 121 U/L (38-126) Total Protein 7.0 g/dL (6.3-8.2) Albumin 3.7 g/dL (3.5-5.1) RPR Non-reactive (NonReactive) HIV 1&2 Ab/P24 Ag 4thGn Pending Patient hx anesthesia problems: none Family hx anesthesia problems: none Results Review: All pre-operative results and documents have been reviewed as part of the pre-operative evaluation. [facility] Past Medical History Medical History (Updated 01/17/25 @ 06:50 by Ladan Santoyo CRNA) Obesity IUP (intrauterine ), incidental Surgical History Surgical History [place] teeth removed Family History Family History Grandparent Heart disease maternal grandmother Father Hypertension Grandparent Diabetes type 2, controlled Social History Social History Smoking status: Never smoker Second hand tobacco smoke exposure: No Alcohol intake: never Substance use: never Substance use type: does not use Do You Feel Safe in your Home?: Yes Lack of Transportation: YES Lack of Food: Never True Current Housing: I Have Housing Concerned About Future Housing: No Difficulty Paying Gas/Electric Bills: No Difficulty Paying for Meds: No Currently Unemployed: No Education: Bachelor's Degree Difficulty w/ Childcare or Family Care: No Living arrangements: with family Additional living arrangements comments: Occupation/Education: occupation 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
[2024-05-10 06:51] LABS: HIV 1/2 Ab P24 Ag Result Negative (Negative)
--- NOTE | 2024-05-10 07:22 | PM.IMHP ---
H&P: HPI History of Present Illness Date/Time: 05/10/24 07:22 Chief Complaint: medical induction of labor Narrative: Raine is a 28yo @ 37.6wks who presents for medical induction of labor. She reports good movements. Irregular cramping. No VB or LOF. She denies PEREIRA, vision changes, RUQ pain, CP, SOB. Her is complicated by: - h/o preeclampsia- low dose ASA - anxiety- sertraline and hydroxyzine - pre-eclampsia w/o sf Review of Systems Constitutional: Constitutional: Denies chills, Denies fever(s) and Denies headache(s) Eyes: Eyes: Denies change in vision ENT: Denies headache(s) Cardiovascular: Cardiovascular: Denies chest pain and Denies dyspnea Respiratory: Respiratory: Denies dyspnea Genitourinary: Genitourinary: Denies abnormal vaginal bleeding and Denies vaginal discharge Neurologic: Denies headache(s) Psychiatric: Psychiatric: Denies anxiety and Denies depression [facility] Past Medical History Medical History (Updated 05/10/24 @ 07:29 by Christa Enriquez MD) Obesity IUP (intrauterine ), incidental Surgical History Surgical History [place] teeth removed Family History Family History Grandparent Heart disease maternal grandmother Father Hypertension Grandparent Diabetes type 2, controlled Social History Social History Smoking status: Never smoker Second hand tobacco smoke exposure: No Alcohol intake: never Substance use: never Substance use type: does not use Do You Feel Safe in your Home?: Yes Lack of Transportation: YES Lack of Food: Never True Current Housing: I Have Housing Concerned About Future Housing: No Difficulty Paying Gas/Electric Bills: No Difficulty Paying for Meds: No Currently Unemployed: No Education: Bachelor's Degree Difficulty w/ Childcare or Family Care: No Living arrangements: with family Additional living arrangements comments: Occupation/Education: occupation 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 [employer] Gender identity (if verbalized by the patient): Female Sexual Orientation (if Verbalized by the Patient): Straight or Heterosexual Spiritual care concerns: No Meds Home Medications and Allergies Home Medications ?Medication ?Instructions ?Recorded ?Confirmed ?Type prenat.vits,bart,job-[id number]-iiiua 1 tablet PO DAILY 03/01/22 05/08/24 History hydroxyzine HCl 25 mg tablet 25 mg PO BID PRN itching 10/24/23 05/08/24 History sertraline 50 mg tablet 50 mg PO DAILY #90 tabs 12/26/23 05/08/24 Rx aspirin 81 mg tablet,delayed 162 mg PO DAILY 01/23/24 05/08/24 History release (Adult Low Dose Aspirin) ferrous sulfate 325 mg (65 mg 325 mg PO DAILY 01/23/24 05/08/24 History iron) tablet (Feosol) Allergies Allergy/AdvReac Type Severity Reaction Status Date / Time amoxicillin Allergy Mild Hives Verified 05/08/24 08:09 Vital Signs Vital Signs - 24 hr 05/10/24 05:36 05/10/24 05:51 05/10/24 05:56 Pulse Rate 66 Blood Pressure 75/38 L Pulse Oximetry 97 96 Oxygen Delivery Room Air 05/10/24 05:58 05/10/24 06:00 05/10/24 06:01 Pulse Rate 85 87 Blood Pressure 114/70 109/59 L Pulse Oximetry 94 Oxygen Delivery 05/10/24 06:06 05/10/24 06:11 05/10/24 06:16 Pulse Rate Blood Pressure Pulse Oximetry 99 100 100 Oxygen Delivery 05/10/24 06:21 05/10/24 06:26 05/10/24 06:30 Pulse Rate 93 Blood Pressure 117/80 Pulse Oximetry 99 100 Oxygen Delivery 05/10/24 06:31 05/10/24 06:36 05/10/24 06:41 Pulse Rate Blood Pressure Pulse Oximetry 100 99 100 Oxygen Delivery 05/10/24 06:48 05/10/24 07:01 Pulse Rate 103 H Blood Pressure 133/82 Pulse Oximetry 75 L Oxygen Delivery Exam Const: General: cooperative, comfortable, no acute distress and obese Nutritional Appearance: obese Orientation/consciousness: patient oriented x3 Resp: Effort & Inspection: normal respiratory effort Cardio: Rate: regular rate GI: GI Palp: No abdominal tenderness : Other: FHT's: 150's/ mod zandra/ + accels/ no decels - cat 1 TOCO: no ctxs Cervix: FT/20/-3 Membranes: intact Presentation: cephalic Skin: General skin exam: normal color Neuro: General: patient oriented x3 Extrem: General: normal to inspection Psych: Appearance: grossly normal Affect: normal affect Attitude: cooperative H&P: Results Labs Labs: Short CBC 05/10/24 Range/Units 05:43 WBC 7.9 (4.5-10.0) K/mm3 Hgb 12.0 (12.0-15.0) g/dL Hct 36.5 L (37.0-47.0) % Plt Count 191 (150-375) k/mm3 BMP 05/10/24 05:55 Sodium 136 L Potassium 3.6 Chloride 107 Carbon Dioxide 18 L BUN 9 Creatinine 0.55 L Glucose 125 H Calcium 9.1 Liver Function 05/10/24 Range/Units 05:55 Total Bilirubin 0.8 (0.2-1.3) mg/dL AST 22 (14-36) U/L ALT 19 (6-35) U/L Alkaline Phosphatase 121 (38-126) U/L Albumin 3.7 (3.5-5.1) g/dL Assessment and Plan Assessment and plan (1) Preeclampsia: Qualifiers: Trimester: third trimester Qualified Code(s): O14.93 - Unspecified pre-eclampsia, third trimester Code(s): O14.90 - Unspecified pre-eclampsia, unspecified trimester Status: Acute Plan - Medical induction of labor; cytotec 50mcg buccal - BPs in normal range; antihypertensive protocol PRN severe range BPS - GBS neg - Continuous monitoring; currently reassuring - Anesthesia consult PRN pain
--- NOTE | 2024-05-10 13:28 | PM.OBPNLAB ---
Pain Control Date/time seen: 05/10/24 13:28 Pain control: tolerating well Pelvic Exam Dilation (cm): 0 (/ft) Effacement (%): 20 station: -3 Amniotic membrane status: Intact Contractions Monitor mode: External Status status: Category l Assessment and Plan Assessment: induction ongoing Comments: s/p cytotec 50mcg x2 - will be due for cervical exam in 1 hour
[2024-05-10] MEDS: LACTATED RINGERS 1,000 ML 125 ML IV CONT ×2 (14:29→16:52)
[2024-05-10] MEDS: OXYTOCIN 30 UNITS/NS 500 ML 30 UNITS/500 ML BAG IV CONT (14:38)
--- NOTE | 2024-05-10 15:00 | PM.OBPNLAB ---
Pain Control Date/time seen: 05/10/24 15:00 Pain control: tolerating well Pelvic Exam Dilation (cm): 2 Effacement (%): 50 station: -3 Amniotic membrane status: Intact Contractions Monitor mode: External Contraction frequency: 2 (-3) Status status: Category l Assessment and Plan Pitocin rate (mU/min): 2 Comments: - cook balloon placed at 1455; 60/60cc placed
[2024-05-10] MEDS: PHENYLEPHRINE 1,000 MCG/10 ML SYRINGE 100 MCG IV PUSH ×3 (17:50→18:25)
--- NOTE | 2024-05-10 20:29 | PM.OBPNLAB ---
Pain Control Date/time seen: 05/10/24 20:29 Pain control: epidural Pelvic Exam Dilation (cm): 5 Effacement (%): 50 station: -3 Amniotic membrane status: Ruptured (AROM, clear 2024) Contractions Monitor mode: Internal Contraction frequency: 2 (-3) Status status: Category l Assessment and Plan Pitocin rate (mU/min): 10 Plan: continuous present management
[2024-05-11] VITALS (43 sets, daily range): BP systolic 101–151; BP diastolic 56–98; PULSE 78–128; RESP 14–18; TEMP 36.5–36.7; O2SAT 97–100
[2024-05-11] MEDS: LACTATED RINGERS 1,000 ML 125 ML IV CONT (00:23)
[2024-05-11] MEDS: OXYTOCIN 30 UNITS/NS 500 ML 30 UNITS/500 ML BAG 125 UNITS IV CONT (02:13)
--- NOTE | 2024-05-11 02:20 | PM.OBPRVD ---
OB - Vaginal Delivery Note Procedure Delivery date: 05/11/24 Events: Preeclampsia w/o severe features Induction method: Per Misoprostol Protocol and Other (cook balloon) Delivery augmentation: Rupture of Membranes and Pitocin Delivery monitor: External FHT and Internal Uterine Route of delivery: Laceration Description: Perineal - 1st Degree and Labial (left) Delivery repair: vicryl Specimen: Yes (placenta) Quantitative Blood Loss (ml): 200 Anesthesia type: Epidural Complications: No immediate complications Baby Date of : 05/11/24 Time of : 01:46 Gestational Age by Date: 38 (.0) Infant gender: Male presentation: vertex Placenta delivery description: Expressed Cord Vessel Description: 3 Vessels, Nuchal Cord (x2) and Loose score one minute: 9 score five minutes: 9 Narrative: Raine progressed to complete dilation with strong desire to push. She pushed for approximately 15 minutes with good maternal effort. She delivered the head over intact perineum. Nuchal cord x2 was noted but loose and delivered through. She easily delivered the 's shoulders and body without complication. The infant was immediately placed skin to skin and had spontaneous cry. Delayed cord clamping was performed. The umbilical cord was then doubly clamped and cut. A segment of cord was collected for cord gases. The remaining cord blood was collected for typing. With Pitocin running and gentle downward traction on the cord, the placenta delivered without complication. Bimanual massage was performed and good uterine tone with minimal bleeding was noted. She was examined and a first-degree perineal laceration as well as a left labial laceration were identified. They were repaired in the normal fashion using 3-0 Vicryl. Good hemostasis was noted. She remained firm with minimal bleeding. Sponge, lap, instrument, and needle counts were correct at the end the procedure. Mom and baby were left bonding in the birthing suite in stable condition.
[2024-05-11] MEDS: IBUPROFEN 600 MG TABLET PO ×3 (03:02→15:18)
[2024-05-11] MEDS: MULTIVIT/MIN/PREN/FOL AC/IRON TABLET 1 TAB PO (09:05)
[2024-05-11] MEDS: SERTRALINE HCL 50 MG TABLET PO (09:05)
[2024-05-11] MEDS: ACETAMINOPHEN 325 MG TABLET 650 MG PO (12:07)
[2024-05-11] MEDS: DOCUSATE SODIUM 100 MG CAPSULE PO (13:50)
--- NOTE | 2024-05-11 15:00 | PC.NURSE ---
Patient transferred to post room #284 via wheelchair. Support person present. Oriented to unit, room, information board, rooming in, admission packet and security measures. Patient verbalizes understanding.
[2024-05-12 04:30] VITALS: BP 108/61; PULSE 74
[2024-05-12] MEDS: ACETAMINOPHEN 325 MG TABLET 650 MG PO (04:30)
[2024-05-12] MEDS: IBUPROFEN 600 MG TABLET PO ×2 (04:30→10:27)
[2024-05-12 04:55] LABS: Hematocrit 30.6 % (37.0-47.0); Hemoglobin 9.9 g/dL (12.0-15.0); Mean Corpuscular HGB Conc 32.4 g/dl (32-36); Mean Corpuscular Hemoglobin 29.5 pg (26-34); Mean Corpuscular Volume 91.1 fl (80-100); Mean Platelet Volume 9.7 fl (7.4-10.4); Platelet Count Result 142 k/mm3 (150-375); Red Blood Count 3.36 M/mm3 (4.2-5.4); Red Cell Distribution Width 13.1 % (11.5-14.5); White Blood Count 9.9 K/mm3 (4.5-10.0)
[2024-05-12 05:05] LABS: Alanine Aminotransferase 14 U/L (6-35); Albumin Level 2.9 g/dL (3.5-5.1); Alkaline Phosphatase 100 U/L (38-126); Anion Gap 3 mmol/L (4-12); Aspartate Amino Transferase 23 U/L (14-36); Bilirubin,Total 0.4 mg/dL (0.2-1.3); Blood Urea Nitrogen 6 mg/dL (7-17); Calcium 8.4 mg/dL (8.4-10.2); Carbon Dioxide 24 mmol/L (22-30); Chloride 109 mmol/L (98-107); Estimated CRCL calculation 158 ml/min; Estimated Glomerular Filt Rate > 60; Glucose 71 mg/dL (65-110); Potassium 3.8 mmol/L (3.4-5.0); Sodium 136 mmol/L (137-145)
[2024-05-12 07:45] VITALS: BP 110/77; PULSE 79; RESP 16; TEMP 36.4; O2SAT 99
[2024-05-12] MEDS: POLYSACCHARIDE IRON COMPLEX 150 MG CAPSULE PO (07:56)
[2024-05-12] MEDS: MULTIVIT/MIN/PREN/FOL AC/IRON TABLET 1 TAB PO (07:56)
[2024-05-12] MEDS: DOCUSATE SODIUM 100 MG CAPSULE PO (07:56)
[2024-05-12] MEDS: SERTRALINE HCL 50 MG TABLET PO (07:57)
--- NOTE | 2024-05-12 08:53 | WPDANLDPN2 ---
Anes-Prog Note L&D Date/Time: 05/12/24 08:53 Neuro status: Neuro function grossly intact. Cardiovascular status: normal Respiratory status: normal Airway patency: baseline Mental status: baseline Post-Op hydration status: normal Vital Signs: Last Vital Signs Temp 36.6 C 05/11/24 18:50 Pulse 74 05/12/24 04:30 Resp 18 05/11/24 18:50 BP 108/61 05/12/24 04:30 Pulse Ox 100 05/11/24 15:00 O2 Del Method Room Air 05/11/24 18:50 Pain score (VAS): 0 I/O: Intake & Output 05/11/24 05/12/24 05/12/24 23:59 07:59 15:59 Intake Total 1040 500 Output Total 2050 500 Balance -1010 0 Post-procedural complaints: none Patient feedback: Patient satisfied with anesthetic care.
--- NOTE | 2024-05-12 09:17 | P.PNOB_ITS ---
OB - PN: Subj Subjective Date/time seen: 05/12/24 09:17 Narrative: PPD#1 Raine reports doing well today. 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 Her pain is controlled. She is tolerating regular diet, voiding, passing gas, and ambulating without issues. She is breast feeding. She denies any symptoms of pre-eclampsia. She would like her son circumcised. She would like to go home today. OB - PN: Obj Data Labs 05/12/24 04:26 05/12/24 04:26 OB - PN A/P Assessment and Plan (1) Normal vaginal delivery of second : Code(s): O80 - Encounter for full-term uncomplicated delivery Status: Acute (2) Preeclampsia: Qualifiers: Trimester: third trimester Qualified Code(s): O14.93 - Unspecified pre- eclampsia, third trimester Code(s): O14.90 - Unspecified pre-eclampsia, unspecified trimester Status: Acute Plan day: 1 Plan: routine care and discharge home Comments: - PO pain meds - Regular diet - Ambulation and hydration encouraged - Continue putting baby to breast q2-3hr - Hospital f/u Wed, office BP check 05/20/24 - Pelvic rest; take meds as prescribed - ER return precautions: fever, n/v/abd pain, bleeding, HTN Time Spent With Patient Time: Total time spent is greater than 50% in coordination of care (as documented) at patient's floor/unit and/or counseling patient: Review of Systems 2 Constitutional: Constitutional: Denies chills, Denies fever(s) and Denies headache(s) Eyes: Eyes: Denies change in vision ENT: Denies dizziness and Denies headache(s) Cardiovascular: Cardiovascular: Denies chest pain, Denies palpitations and Denies dyspnea Respiratory: Respiratory: Denies cough and Denies dyspnea Gastrointestinal: Gastrointestinal: Denies nausea and Denies vomiting Neurologic: Denies dizziness and Denies headache(s) Endocrine: Endocrine: Denies palpitations Exam 2 Const: General: cooperative, comfortable and no acute distress O rientation/consciousness: patient oriented x3 Resp: Effort & Inspection: normal respiratory effort Auscultation: clear to auscultation bilaterally Cardio: Rate: regular rate GI: Inspection: non-distended GI Palp: No abdominal tenderness and Yes Soft to palpation Auscultation: normal bowel sounds : Other: fundus firm Skin: General skin exam: normal color Neuro: General: patient oriented x3 Extrem: General: normal to inspection Psych: Appearance: grossly normal Affect: normal affect Attitude: c ooperative
--- NOTE | 2024-05-12 09:50 | PC.NURSE ---
Patient instructed on viewing the discharge video Mother & Baby Care, The First Two Weeks . Patient was given the opportunity and encouraged to ask questions. Patient verbalized understanding of information shared and has been given the mother/baby guide for home reference.
--- NOTE | 2024-05-12 10:11 | PM.OBDSVD ---
DS: Admitting Diagnosis Discharge Date 05/12/24 Admitting Diagnosis Pre-eclampsia without severe features DS: Discharge Diagnosis Discharge Diagnosis (1) Normal vaginal delivery of second : Code(s): O80 - Encounter for full-term uncomplicated delivery Status: Acute (2) Preeclampsia: Qualifiers: Trimester: third trimester Qualified Code(s): O14.93 - Unspecified pre-eclampsia, third trimester Code(s): O14.90 - Unspecified pre-eclampsia, unspecified trimester Status: Acute OB - DS: Summary OB Procedures : NST, PIH Mgmt and Ultrasound OB Procedures Intrapartum: Spontaneous Vag Delivery OB Procedures: : None Peripartum Data Infant Delivery Method: Natural Vaginal Laceration Description: Perineal - 1st Degree and Labial (left) Episiotomy description: None complications: none [place] 1: Gender: Male Disposition of : home Status at Discharge Functional status at discharge: independent ambulation Overall status at discharge: patient is back to baseline Time Spent with Patient Time attestation: Total time spent providing and/or coordinating discharge services: Time spent: Less than 30 minutes Exam Const: General: cooperative, comfortable, no acute distress and obese Nutritional Appearance: obese Orientation/consciousness: patient oriented x3 Resp: Effort & Inspection: normal respiratory effort Auscultation: clear to auscultation bilaterally Cardio: Rate: regular rate GI: Inspection: non-distended GI Palp: No abdominal tenderness and Yes Soft to palpation Auscultation: normal bowel sounds : Other: fundus firm Skin: General skin exam: normal color Neuro: General: patient oriented x3 Extrem: General: normal to inspection Psych: Appearance: grossly normal Affect: normal affect Attitude: cooperative DS: Data Data Completed and Pending Labs on day of discharge: Labs from last 24 hours 05/12/24 04:26 WBC 9.9 RBC 3.36 L Hgb 9.9 L Hct 30.6 L MCV 91.1 MCH 29.5 MCHC 32.4 RDW 13.1 Plt Count 142 L MPV 9.7 Sodium 136 L Potassium 3.8 Chloride 109 H Carbon Dioxide 24 Anion Gap 3 L BUN 6 L Creatinine 0.51 L Estim Creat Clear Calc 158 Estimated GFR > 60 Glucose 71 Calcium 8.4 Total Bilirubin 0.4 AST 23 ALT 14 Alkaline Phosphatase 100 Total Protein 6.0 L Albumin 2.9 L Discharge Plan Discharge Attending physician on discharge: Christa Enriquez Discharging Clinician: Christa Enriquez Patient Disposition: Home, Self-Care Activity: may shower and pelvic rest Diet: regular Patient Instructions: Vaginal Delivery (DC) Patient Language: [place] Stand Alone Forms: General Discharge Information Follow-up/Referrals: Christa Enriquez MD [Physician] - 4 Weeks Discharge Medications: New acetaminophen 325 mg Tablet 650 mg PO Q6H PRN (Reason: Mild Pain (1-3) Or Headache) Qty: 60 0RF docusate sodium 100 mg Capsule 100 mg PO BID PRN (Reason: Constipation) Qty: 90 0RF ibuprofen 600 mg Tablet 600 mg PO Q6H PRN (Reason: Cramping) Qty: 40 0RF Continued hydroxyzine HCl 25 mg tablet 25 mg PO BID PRN (Reason: itching) ferrous sulfate [Feosol] 325 mg (65 mg iron) tablet 325 mg PO DAILY prenat.vits,bart,[id number] Tablet 1 tablet PO DAILY sertraline 50 mg tablet 50 mg PO DAILY Qty: 90 3RF Discontinued aspirin [Adult Low Dose Aspirin] 81 mg tablet,delayed release (DR/EC) 162 mg PO DAILY Date of admission: 05/10/24 05:14 Primary Care Provider: UNKNOWN,DOCTOR Admitting Provider: Christa Enriquez Attending physician on admission: Christa Enriquez Condition: Stable
[2024-05-15 11:17] VITALS: BP 128/70; PULSE 91; RESP 18; TEMP 36.9; O2SAT 100
== END 2024-05-12 12:25 | disposition home or self-care (01) | DRG 807 ==
LOC: ANHLDR 05-11 08:54 → ANHOB2 05-11 15:03
PROVIDERS: Admitting Provider Obstetrics & Gynecology; Visit Provider Obstetrics & Gynecology
DX: O14.04 Mild to moderate pre-eclampsia, complicating childbirth (principal); Z37.0 Single live birth; O69.81X0 Labor and delivery complicated by cord around neck, without compression, not applicable or unspecified; O70.0 First degree perineal laceration during delivery; Z3A.38 38 weeks gestation of pregnancy
CPT/HCPCS: 36415; 80053; 84550; 85025; 85027; 86592; 86703; 86850; 86900; 86901; 88307; A9270; G0432; J2371; J2590; J2795; J7120

== ENCOUNTER 2024-05-29 08:51 | Emergency (ER) | payer OTHER, SELFPAY ==
--- NOTE | 2024-05-29 08:55 | ED.URI ---
HPI - URI/Sore Throat General Chief Complaint: Upper Respiratory Infection Stated Complaint: SORE THROAT/HEADACHE/BODY ACHES/CHILLS Time Seen by Provider: 05/29/24 08:54 Source: patient Mode of arrival: ambulatory Limitations: no limitations History of Present Illness HPI Narrative: Patient is a 28-year-old female who presents with congestion, headache, chills, body aches for 3 days. Patient reports sore throat started yesterday. Denies any nausea, vomiting, diarrhea could, fever. Has taken [id number] meds with no relief. Related Data Home Medications ?Medication ?Instructions ?Recorded ?Confirmed ?Last Taken ?Type prenat.vits,bart,cax-zbph-apfuh 1 tablet PO DAILY 03/01/22 05/08/24 05/06/24 20:30 History hydroxyzine HCl 25 mg tablet 25 mg PO BID PRN itching 10/24/23 05/08/24 Unknown History ferrous sulfate 325 mg (65 mg 325 mg PO DAILY 01/23/24 05/08/24 05/06/24 20:30 History iron) tablet (Feosol) 325 mg Allergies Allergy/AdvReac Type Severity Reaction Status Date / Time amoxicillin Allergy Mild Hives Verified 05/29/24 09:20 Review of Systems Review of Systems: All systems reviewed & are unremarkable except as noted in HPI and below Constitutional: Constitutional: Reports body ache(s), Reports chills, Denies fatigue, Denies fever(s), Reports headache(s), Denies malaise and Denies weakness Eyes: Eyes: Denies blurry vision, Denies itchy eyes and Denies loss of vision ENT: Denies otalgia, Denies headache(s), Reports nasal congestion, Denies sinus pain and Reports sore throat Cardiovascular: Cardiovascular: Denies chest pain, Denies irregular heart rhythm and Denies dyspnea Respiratory: Respiratory: Denies cough and Denies dyspnea Gastrointestinal: Gastrointestinal: Denies abdominal pain, Denies diarrhea, Denies nausea and Denies vomiting Musculoskeletal: Musculoskeletal: Denies back pain, Reports myalgias and Denies arthralgias Integumentary/Breasts: Skin/Breast: Denies pruritus and Denies rash Neurologic: Reports headache(s), Denies loss of vision and Denies weakness Psychiatric: Psychiatric: Reports no additional psychiatric complaints Endocrine: Endocrine: Denies fatigue Allergic/Immunologic: Allergic/Immunologic: Denies itchy eyes PMFSH Past Medical History Medical History Obesity IUP (intrauterine ), incidental Surgical History Surgical History [place] teeth removed Family History Family History Grandparent Heart disease maternal grandmother Father Hypertension Grandparent Diabetes type 2, controlled Social History Social History Smoking status: Never smoker Second hand tobacco smoke exposure: No Alcohol intake: never Substance use: never Substance use type: does not use Do You Feel Safe in your Home?: Yes Lack of Transportation: YES Lack of Food: Never True Current Housing: I Have Housing Concerned About Future Housing: No Difficulty Paying Gas/Electric Bills: No Difficulty Paying for Meds: No Currently Unemployed: No Education: Bachelor's Degree Difficulty w/ Childcare or Family Care: No Living arrangements: with family Additional living arrangements comments: Occupation/Education: occupation 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 There is no relevant family history pertinent to the presenting complaint. Exam Const: General: cooperative, healthy appearing, comfortable, no acute distress and well nourished Nutritional Appearance: well nourished Orientation/consciousness: patient oriented x3 Limitations: no limitations HENMT: Head: normal to inspection, normocephalic and atraumatic Ears: hearing grossly normal bilaterally, external ears normal, TM's normal bilaterally, EAC's normal and no periauricular adenopathy Face/Nose/Sinus: Normal external nose present, Normal nasal mucous membranes and turbinates present, normal facial exam, sinuses nontender and face symmetric Face and sinus: normal facial exam, sinuses nontender and face symmetric Mouth: Yes Normal oral and palatal mucosa present, Yes lip normal, Yes tongue normal, Yes Normal salivary glands and ducts present, Yes oropharynx normal and Yes moist mucous membranes Teeth and gingiva: dentition normal Throat: uvula midline, abnormal tonsil bilateral erythema and posterior oropharynx abnormal erythema Eyes: General: appearance normal, both eyes and all related structures Alignment and Position: alignment normal and position normal Periorbital: periorbital findings normal Eyelids: eyelids normal Pupils: Equal, round and reactive pupils present Neck: Neck: normal visual inspection, full ROM, no lymphadenopathy and supple Chest: Chest palpation & inspection: normal inspection of the chest and normal palpation of entire chest wall Resp: Effort & Inspection: normal respiratory effort and able to speak in complete sentences Auscultation: clear to auscultation bilaterally, no crackles, no rales, no rhonchi and no wheezes Cardio: Rate: regular rate Rhythm: regular rhythm Heart sounds: S1 normal heart sound present and S2 normal heart sound present GI: Inspection: normal to inspection Skin: General skin exam: normal color and no rashes or lesions noted Neuro: General: patient oriented x3 and moves all extremities Cranial nerves: Yes Equal, round and reactive pupils present Speech: normal speech Gait exam (Neuro): Normal gait present Extrem: General: normal to inspection, full ROM and no edema Psych: Appearance: grossly normal and well kempt Mental Status: mental status grossly normal Speech and movement: Normal speech and movement present Affect: normal affect Attitude: cooperative Thought process: Normal thought process present Course Course Emergency Course: Discharge instructions reviewed with patient, as well as provided in writing per nursing staff. The instructions also include specific and strict return/GO TO THE ER as well as f/u information. All questions have been answered, and the patient deny any further questions with discharge and discharge plan. Portions of this record may have been created with voice recognition software Level of Care: Express Care Visit Vital Signs Vital signs: Vital Signs Temperature 36.4 C L 05/29/24 09:18 Pulse Rate 100 05/29/24 09:18 Respiratory Rate 16 05/29/24 09:18 Blood Pressure 129/80 05/29/24 09:18 Pulse Oximetry 100 05/29/24 09:18 Temperature 36.4 C L 05/29/24 09:18 Pulse Rate 100 05/29/24 09:18 Respiratory Rate 16 05/29/24 09:18 Blood Pressure 129/80 05/29/24 09:18 Pulse Oximetry 100 05/29/24 09:18 Reviewed MDM - URI/Sore Throat MDM Narrative Medical decision making narrative: Pt well hydrated appearing, in no respiratory distress, hemodynamically stable. Recommend supportive care. The patient is stable at time of discharge the clinical impression was discussed and the patient was given the opportunity to ask questions, which were addressed as completely as possible given the information available at present. Anticipatory guidance and return to care precautions were discussed and the importance of primary care follow-up was stressed and encouraged. The patient voiced understanding of the plan, indications to return, and the need for follow-up. Differential diagnosis considered: Iglesias virus, strep pharyngitis, allergic rhinitis, upper respiratory tract infection, sinusitis, rhinosinusitis, nasopharyngitis. viral pharyngitis, otitis media, otitis externa, otitis effusion, foreign body, cerumen impaction, viral syndrome, and influenza.? Exam findings show no acute concerns or changes; patient is non-toxic appearing and is in no distress.? Patient is appropriate for outpatient treatment and follow-up.? Medical Records Attestation: I reviewed the patient's medical records. Lab Data Attestation: I reviewed the patient's lab results. Labs: Lab Results 05/29/24 Range/Units 09:26 POC Influenza A Ag Negative (Negative) POC Influenza B Ag Negative (Negative) POC SARS CoV-2 Ag Negative (Negative) POC Grp A Strep Screen Positive (Negative) Discharge Plan Discharge Clinical Impression: Pharyngitis Qualifiers: Pharyngitis/tonsillitis etiology: streptococcus Qualified Code(s): J02.0 - Streptococcal pharyngitis Patient Disposition: Home, Self-Care Condition: Stable Instructions: Strep Throat (ED) Additional Instructions: Your rapid strep swab was positive today at [facility]. After 24 hours on antibiotics throw tooth brush away and start using a new one. Wash your sheets and cup/water bottle that is used daily. Do not share drinks. Take Motrin alternating with Tylenol for pain and fever alternating every 4 hours. Increase fluids, avoid caffeine. Other symptomatic treatments include: -Antihistamine medication such as Benadryl at night and Zyrtec/Claritin/Sonam during the day can help improve symptoms. -Use Flonase twice a day for 5 days then daily to help reduce the inflammation and dry up your sinuses. -You can also use Sudafed or Mucinex. Be sure to drink plenty of water with these medications at least 8 ounces with every dose and it is important to drink 8 to 10 glasses of water per day. Water is a natural decongestant -Eat and drink things that are easy to swallow, like tea or soup, or popsicles. -Oral rinses such as: Salt water gargles and/or may use topical anesthetic (eg. Chloraseptic spray) or lozenges to relieve dryness or throat pain). -Frequent hand washing or hand county director welfare is one of the best ways to prevent spread of infection. -Using a vaporizer or humidifier at night will also help thin secretions and help with coughing up phlegm. -Follow up with primary care provider in 3-5 days if condition is not improving - For new or worsening symptoms go directly to the nearest ER Patient Language: Upper Sorbian Prescriptions: New cefdinir 300 mg capsule 300 mg PO Q12H 10 Days Qty: 20 0RF No Action hydroxyzine HCl 25 mg tablet 25 mg PO BID PRN (Reason: itching) ferrous sulfate [Feosol] 325 mg (65 mg iron) tablet 325 mg PO DAILY prenat.vits,bart,ayc-zsip-qkgev Tablet 1 tablet PO DAILY acetaminophen 325 mg Tablet 650 mg PO Q6H PRN (Reason: Mild Pain (1-3) Or Headache) Qty: 60 0RF docusate sodium 100 mg Capsule 100 mg PO BID PRN (Reason: Constipation) Qty: 90 0RF ibuprofen 600 mg Tablet 600 mg PO Q6H PRN (Reason: Cramping) Qty: 40 0RF sertraline 50 mg tablet 50 mg PO DAILY Qty: 90 3RF Follow-up/Referrals: PHYSICIAN,REAL ESTATE CLOSING COORDINATOR [Primary Care Provider] - Emilio Choe MD [Physician] - 3 Days Time of Disposition: 09:57
[2024-05-29 09:18] VITALS: BP 129/80; PULSE 100; RESP 16; TEMP 36.4; O2SAT 100
[2024-05-29 09:36] LABS: EDCOVIDSCREEN Negative (Negative); EDINFLUASCREEN Negative (Negative); EDINFLUBSCREEN Negative (Negative); EDSTREPNEGPOS1 Positive (Negative)
== END 2024-05-29 10:01 | disposition home or self-care (01) ==
PROVIDERS: Emergency Provider Nurse Practitioner Family
DX: J02.0 Streptococcal pharyngitis (principal); Z20.822 Contact with and (suspected) exposure to COVID-19
CPT/HCPCS: 87426; 87804; 87880; 99213; G0463

== ENCOUNTER 2024-10-23 07:56 | Outpatient (CLI) | payer OTHER, SELFPAY ==
--- NOTE | ~2024-10-23 | XR_ITS ---
SINGLE AP VIEW PELVIS Ordering provider: Christa Enriquez MD History: . Disorder of bone, PT STATES PUBIC SYMPHYSIS PAIN [id number] . Comparison: None. FINDINGS: BONES: No acute fracture or dislocation. HIP JOINT SPACES: Normal. SACROILIAC JOINT SPACES/LUMBAR SPINE: The sacroiliac joint spaces are normal. Normal visualized lower lumbar spine. PUBIC SYMPHYSIS: Normal. SOFT TISSUES: Normal. IMPRESSION: No acute osseous abnormality pelvis. Reviewed, dictated and finalized at location A.
== END 2024-10-23 07:57 | disposition home or self-care (01) ==
PROVIDERS: Visit Provider Obstetrics & Gynecology
DX: M89.9 Disorder of bone, unspecified (principal); O80 Encounter for full-term uncomplicated delivery; Z3A.00 Weeks of gestation of pregnancy not specified
CPT/HCPCS: 72170